=== PATIENT | female | born 2005 | race American Indian/Alaskan Native ===

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

== ENCOUNTER 2023-06-06 14:51 | Emergency (ER) | payer MEDICAID ==
[2023-06-06 14:33] LABS: BASOPHILS PERCENT AUTO 0.4 % (0.0-1.0); EOSINOPHILS PERCENT AUTO 0.3 % (1.0-3.0); HEMOGLOBIN 10.5 g/dL (12.0-16.0); LYMPHOCYTES PERCENT AUTO 36.8 % (20.5-50.1); MEAN CORPUSCULAR HEMOGLOBIN 18.3 pg (27.0-34.0); NEUTROPHILS PERCENT AUTO 55.5 % (42.2-75.2); PLATELET COUNT,PLT 465 10^3/uL (150-450); RED BLOOD CELL COUNT 5.74 10^6/uL (4.2-5.4); WHITE BLOOD CELL COUNT,WBC 7.4 10^3/uL (5.0-10.0)
[2023-06-06 14:53] LABS: A/G RATIO 0.7; ACETAMINOPHEN 39 ug/mL (10-30 (Therapeutic)); ALANINE AMINOTRANSFERASE,ALT 27 U/L (14-59); ALBUMIN 3.4 g/dL (3.4-5.0); ALKALINE PHOSPHATASE 94 U/L (46-116); ANION GAP 19.9 mEq/L (7-13); ASPARTATE AMNIOTRANSFERASE,AST 15 U/L (15-37); BILIRUBIN TOTAL 0.2 mg/dL (0.2-1.0); BLOOD UREA NITROGEN,BUN 5 mg/dL (7-18); BUN/CREATININE RATIO 6.4 (No establ ref range); CALCIUM 8.5 mg/dL (8.5-10.1); CARBON DIOXIDE,CO2 22 mmol/L (21-32); CHLORIDE,CL 107 mmol/L (98-107); CREATININE 0.78 mg/dL (0.55-1.02); ETHANOL BLOOD MEDICAL 90 mg/dL (0); GLUCOSE RANDOM 105 mg/dL (70-99); POTASSIUM,K 3.9 mmol/L (3.5-5.1); PROTEIN TOTAL,TP 8.1 g/dL (6.4-8.2); SODIUM,NA 145 mmol/L (136-145)
[2023-06-06 14:59] LABS: ESTIMATED GFR 111 mL/min (>=60)
[2023-06-06] MEDS: Sodium Chloride 0.9% 1,000 ML IV ONE ×2 (15:27→16:45)
[2023-06-06] MEDS: Sodium Chloride 0.9% 10 ML Syringe FLUSH PRN (15:31)
[2023-06-06 17:40] LABS: ACETAMINOPHEN 26 ug/mL (10-30 (Therapeutic)); BLOOD UREA NITROGEN,BUN 4 mg/dL (7-18); CALCIUM 7.7 mg/dL (8.5-10.1); CARBON DIOXIDE,CO2 24 mmol/L (21-32); CHLORIDE,CL 109 mmol/L (98-107); CREATININE 0.76 mg/dL (0.55-1.02); GLUCOSE RANDOM 86 mg/dL (70-99); SODIUM,NA 145 mmol/L (136-145)
[2023-06-06 17:41] LABS: ESTIMATED GFR 115 mL/min (>=60)
[2023-06-06 18:20] LABS: APPEARANCE,URINE SLIGHTLY CLOUDY (CLEAR); BILIRUBIN,URINE NEGATIVE (NEGATIVE); COLOR,URINE YELLOW (YELLOW); GLUCOSE,URINE NEGATIVE (NEGATIVE); KETONES,URINE NEGATIVE (NEGATIVE); LEUKOCYTE ESTERASE,URINE NEGATIVE (NEGATIVE); NITRITE,URINE NEGATIVE (NEGATIVE); OCCULT BLOOD,URINE NEGATIVE (NEGATIVE); PROTEIN,URINE NEGATIVE (NEGATIVE); UROBILINOGEN,URINE 0.2 mg/dL (0.2-1.0)
[2023-06-06 18:26] LABS: AMPHETAMINES,URINE NEGATIVE (NEGATIVE); BARBITURATES,URINE NEGATIVE (NEGATIVE); BENZODIAZEPINE,URINE NEGATIVE (NEGATIVE); MDMA (ECSTASY), URINE NEGATIVE (NEGATIVE); METHADONE,URINE NEGATIVE (NEGATIVE); METHAMPHETAMINES,URINE NEGATIVE (NEGATIVE); OPIATES,URINE NEGATIVE (NEGATIVE); OXYCODONE,URINE NEGATIVE (NEGATIVE); PHENCYCLIDINE,URINE NEGATIVE (NEGATIVE); TCA,URINE NEGATIVE (NEGATIVE)
[2023-06-06 19:42] VITALS: BP 127/89; PULSE 78
== END 2023-06-06 19:36 | disposition home or self-care (01) ==
LOC: DL.ED 14:51
DX: T39.1X2A Poisoning by 4-Aminophenol derivatives, intentional self-harm, initial encounter (principal)
CPT/HCPCS: 36415; 71045; 80048; 80053; 80143; 80179; 80305-QW; 80307; 81003; 81025; 83605; 85025; 93005; 93010; 96360; 96361; 99285; 99285-25; J3490; J7030

== ENCOUNTER 2024-05-29 20:31 | Emergency (ER) | payer MEDICAID ==
[2024-05-29 20:28] VITALS: BP 137/86; PULSE 104
== END 2024-05-29 20:44 | disposition home or self-care (01) ==
LOC: DL.ED 20:31
DX: Z53.21 Procedure and treatment not carried out due to patient leaving prior to being seen by health care provider (principal)
CPT/HCPCS: 99283

== ENCOUNTER 2024-08-13 23:06 | Emergency (ER) | payer MEDICAID ==
[2024-08-13 23:45] VITALS: BP 143/79; PULSE 109
[2024-08-14] MEDS: Ketorolac 30 MG/ML SDV IM ONE (00:42)
[2024-08-14] MEDS: valACYclovir 1,000 MG Tab PO ONE (00:42)
== END 2024-08-14 02:10 | disposition home or self-care (01) ==
LOC: DL.ED 23:06
DX: N76.0 Acute vaginitis (principal); B00.9 Herpesviral infection, unspecified
CPT/HCPCS: 86592; 87210; 87389; 96372; 99283; A9270; J1885; 99284